=== PATIENT | male | born 1980 | race African-American/Black ===

== ENCOUNTER 2016-10-17 20:28 | Emergency (ER) | payer OTHER ==
[~2016-10-17] VITALS: Ht 175.3 cm; Wt 92.8 kg
[~2016-10-17 20:28] MED LIST: ALBUTEROL SULF8.5 GM IH; ALBUTEROL2.5 MG/3 M IH; METOPROLOL TART25 MG PO; PROVENTIL,2.5 MG/3 M IH; VENTOLIN HFA18 GM IH
[2016-10-17] MEDS ORDERED: PREDNISONE20 MG PO (22:27)
[2016-10-17] MEDS ORDERED: VENTOLIN HFA18 GM IH (22:27)
[2016-10-17 22:50] VITALS: BP 131/79
== END 2016-10-17 22:50 | disposition home or self-care (01) ==
LOC: EME 20:28
DX: J98.01 Acute bronchospasm (principal); J45.909 Unspecified asthma, uncomplicated; F17.200 Nicotine dependence, unspecified, uncomplicated
CPT/HCPCS: 93005; 94640; 99281; 99285; J7512

== ENCOUNTER 2016-11-10 09:26 | Emergency (ER) | payer OTHER ==
[~2016-11-10] VITALS: Ht 175.3 cm; Wt 92.1 kg
[~2016-11-10 09:26] MED LIST changes: +PREDNISONE20 MG PO
[2016-11-10] MEDS ORDERED: ULTRAM50 MG PO (11:55)
[2016-11-10] MEDS ORDERED: ZITHROMAX Z-PA250 MG PO (11:55)
[2016-11-10] MEDS ORDERED: VENTOLIN HFA18 GM IH (11:57)
[2016-11-10 12:09] VITALS: BP 126/76
== END 2016-11-10 12:29 | disposition home or self-care (01) ==
LOC: EME 09:26
DX: J20.9 Acute bronchitis, unspecified (principal); S93.402A Sprain of unspecified ligament of left ankle, initial encounter; F17.200 Nicotine dependence, unspecified, uncomplicated; Z71.6 Tobacco abuse counseling; W00.0XXA Fall on same level due to ice and snow, initial encounter
CPT/HCPCS: 71020; 73610; 94640; 99281; 99284

== ENCOUNTER 2016-11-12 11:18 | Emergency (ER) | payer OTHER ==
[~2016-11-12] VITALS: Ht 175.3 cm; Wt 102.2 kg
[~2016-11-12 11:18] MED LIST changes: +ULTRAM50 MG PO; +ZITHROMAX Z-PA250 MG PO
[2016-11-12 13:40] LABS: HEMATOCRIT 44.8 % (38.0-50.0); MCH 32.3 PG (29.0-34.0); MCV 92.2 FL (86-99); MEAN PLAT.VOLUME 10.8 uM^3 (9.0-12.4); PLATELET COUNT 163 K/uL (156-360); RBC DIS.WIDTH-CV 11.9 % (11.8-14.6); RED BLOOD COUNT 4.86 M/uL (4.00-5.50); WHITE BLOOD COUNT 4.7 K/uL (4.1-10.2)
[2016-11-12 13:52] LABS: CHLORIDE 102 mEq/L (99-109); POTASSIUM 3.8 mEq/L (3.7-5.4); SODIUM 137 mEq/L (136-147)
[2016-11-12 13:54] LABS: GLUCOSE 82 mg/dL (70-99)
[2016-11-12 13:55] LABS: ANION GAP 17 MEQ/L (2-14); D-DIMER ELISA 0.77 mg/L FEU (< 0.57)
[2016-11-12 13:56] LABS: TOTAL BILIRUBIN 0.7 mg/dL (0.0-1.0)
[2016-11-12 13:58] LABS: ALKALINE PHOSPHATASE 71 IU/L (3-129); GFR ESTIMATE (CALCULATED) > 59 mL/min/
[2016-11-12 13:59] LABS: UREA NITROGEN (BUN) 7 mg/dL (9-23)
[2016-11-12 14:01] LABS: TROP-I INTERPRETATION NEGATIVE; TROPONIN-I < 0.01 ng/mL (0.0-0.30)
[2016-11-12 14:49] LABS: LIPASE 100 U/L (1.0-51.0)
[2016-11-12] MEDS ORDERED: ATARAX,VISTARIL50 MG PO (17:33)
[2016-11-12] MEDS ORDERED: PREDNISONE20 MG PO (17:33)
[2016-11-12] MEDS ORDERED: LEVAQUIN750 MG PO (17:33)
[2016-11-12] MEDS ORDERED: DUONEB 2.5-0.5 M3 ML AEROSOL (17:33)
[2016-11-12 18:07] VITALS: BP 145/100
== END 2016-11-12 18:08 | disposition home or self-care (01) ==
LOC: EME 11:18
PROVIDERS: Nurse Practitioner Family
DX: J18.9 Pneumonia, unspecified organism (principal); F17.200 Nicotine dependence, unspecified, uncomplicated; J45.909 Unspecified asthma, uncomplicated; F10.20 Alcohol dependence, uncomplicated; K76.0 Fatty (change of) liver, not elsewhere classified; R79.89 Other specified abnormal findings of blood chemistry; R07.9 Chest pain, unspecified
CPT/HCPCS: 71020; 71275; 80053; 83690; 84484; 85027; 85379; 93005; 94640; 99281; 99285; J2060; J7030; J7512; Q0177